=== PATIENT | female | born 1955 | race Caucasian/White ===

== ENCOUNTER 2024-10-30 06:10 | Day surgery (SDC) | payer MEDICARE, SELFPAY ==
[2024-10-30 09:00] VITALS: BMI 17.3
[2024-10-30 09:10] VITALS: BP 139/77
[2024-10-30 09:28] VITALS: BMI 17.3
[2024-10-30 12:45] VITALS: BP 117/79
[2024-10-30 12:54] VITALS: BP 132/62
== END 2024-10-30 13:08 | disposition home or self-care (01) ==
LOC: GI 06:10
PROVIDERS: ATTENDING PHYSICIAN Internal Medicine Gastroenterology
DX: K22.89 Other specified disease of esophagus (principal); R93.5 Abnormal findings on diagnostic imaging of other abdominal regions, including retroperitoneum; K63.89 Other specified diseases of intestine; K80.20 Calculus of gallbladder without cholecystitis without obstruction; Z12.89 Encounter for screening for malignant neoplasm of other sites; Z15.01 Genetic susceptibility to malignant neoplasm of breast; Z15.09 Genetic susceptibility to other malignant neoplasm
CPT/HCPCS: 43259

== ENCOUNTER → 2025-05-08 07:51 | Outpatient (REF) | payer MEDICARE, SELFPAY | LOC: MRI 07:51 | PROVIDERS: ATTENDING PHYSICIAN Internal Medicine Hematology & Oncology; FAMILY PHYSICIAN Family Medicine | DX: C82.98 Follicular lymphoma, unspecified, lymph nodes of multiple sites (principal); D70.9 Neutropenia, unspecified; D50.9 Iron deficiency anemia, unspecified | CPT/HCPCS: 72197; 74183; A9575 ==

== ENCOUNTER → 2025-08-03 08:16 | Outpatient (REF) | payer MEDICARE, SELFPAY ==
[2025-08-03 08:47] VITALS: BP 109/72; BP_SYST 78
[2025-08-03 09:14] VITALS: BMI 16.1
[2025-08-03] MEDS: ANCEF 10 IV (09:20)
[2025-08-03 10:20] VITALS: BP 125/51; BP_SYST 85
[2025-08-03 10:25] VITALS: BP 114/70; BP_SYST 80
[2025-08-03 10:40] VITALS: BP 94/79; BP_SYST 80
== END ==
LOC: RADI 08:16
PROVIDERS: ATTENDING PHYSICIAN Internal Medicine Hematology & Oncology; FAMILY PHYSICIAN Family Medicine
DX: C56.9 Malignant neoplasm of unspecified ovary (principal)
CPT/HCPCS: 36561; 76937; 77001; 99152; 99153; C1788

== ENCOUNTER → 2025-08-26 12:50 | Outpatient (REF) | payer MEDICARE, SELFPAY ==
[2025-08-26 13:42] LABS: ALT (SGPT) 47 U/L (0-35); AST (SGOT) 43 U/L (14-36); Albumin 3.8 g/dl (3.5-5.0); Alkaline Phosphatase 101 U/L (38-126); Blood Urea Nitrogen 26 mg/dl (7-17); Calcium 9.2 mg/dl (8.4-10.2); Carbon Dioxide 26 mmol/L (22-30); Chloride 106 mmol/L (98-107); Glucose 102 mg/dl (70-99); Potassium 4.4 mmol/L (3.5-5.1); Sodium 138 mmol/L (135-145); Total Protein 6.4 g/dl (6.3-8.2); eGFR > 60.00
== END ==
LOC: REG 12:50
PROVIDERS: ATTENDING PHYSICIAN Internal Medicine Hematology & Oncology; FAMILY PHYSICIAN Family Medicine
DX: D80.1 Nonfamilial hypogammaglobulinemia (principal); C82.98 Follicular lymphoma, unspecified, lymph nodes of multiple sites; D70.9 Neutropenia, unspecified; T50.995S Adverse effect of other drugs, medicaments and biological substances, sequela; C34.91 Malignant neoplasm of unspecified part of right bronchus or lung; Q78.2 Osteopetrosis; R19.09 Other intra-abdominal and pelvic swelling, mass and lump; Z15.01 Genetic susceptibility to malignant neoplasm of breast; C56.9 Malignant neoplasm of unspecified ovary
CPT/HCPCS: 36415; 80053

== ENCOUNTER → 2025-09-16 10:10 | Outpatient (REF) | payer MEDICARE, SELFPAY ==
[2025-09-16 11:23] LABS: ALT (SGPT) 33 U/L (0-35); AST (SGOT) 26 U/L (14-36); Albumin 4.1 g/dl (3.5-5.0); Alkaline Phosphatase 155 U/L (38-126); Blood Urea Nitrogen 35 mg/dl (7-17); Calcium 10.0 mg/dl (8.4-10.2); Carbon Dioxide 27 mmol/L (22-30); Chloride 104 mmol/L (98-107); Glucose 92 mg/dl (70-99); Potassium 3.8 mmol/L (3.5-5.1); Sodium 139 mmol/L (135-145); Total Protein 6.5 g/dl (6.3-8.2); eGFR > 60.00
== END ==
LOC: REG 10:10
PROVIDERS: ATTENDING PHYSICIAN Internal Medicine Hematology & Oncology; FAMILY PHYSICIAN Family Medicine
DX: C82.98 Follicular lymphoma, unspecified, lymph nodes of multiple sites (principal); D70.9 Neutropenia, unspecified; T50.995S Adverse effect of other drugs, medicaments and biological substances, sequela; C34.91 Malignant neoplasm of unspecified part of right bronchus or lung; D80.1 Nonfamilial hypogammaglobulinemia; Q78.2 Osteopetrosis; R19.09 Other intra-abdominal and pelvic swelling, mass and lump; Z15.01 Genetic susceptibility to malignant neoplasm of breast; C56.9 Malignant neoplasm of unspecified ovary
CPT/HCPCS: 36415; 80053